=== PATIENT | female | born 1965 ===

== ENCOUNTER 2020-08-04 16:40 | Emergency (ER) | payer SELFPAY ==
[2020-08-04] MEDS ORDERED: Sodium Chloride 0.9% 10 ML Syringe FLUSH PRN (16:59)
[2020-08-04] MEDS ORDERED: Sodium Chloride 0.9% 1,000 ML IV ONE (17:03)
--- NOTE | 2020-08-04 17:11 | EDM.PDOC ---
"ED HPI GENERAL MEDICAL PROBLEM - General Chief Complaint: Neurological Problem Stated Complaint: WEAK, HARD TIME WALKING NEEDS TO BE CHECKED Time Seen by Provider: 08/04/20 17:05 Source of Information: Reports: Patient, Family (), RN, RN Notes Reviewed History Limitations: Reports: Altered Mental Status - History of Present Illness INITIAL COMMENTS - FREE TEXT/NARRATIVE: Pt presented to ER by with c/o generalized weakness, confusion, difficulty walking and speaking that began around 0900HRS this morning and has been persistent all day. Initially pt told her to let her sleep, but she slept several hours, and when he woke her she was worse and he decided to bring her to the ER. Denies any history or alcohol, drug use, sleep medication or supplements, head injury, headache, or CVA. Pt is able to state that she has no pain. She denies visual changes. Denies any significant PMHx. Onset: Today Onset Date: 08/04/20 Onset Time: 09:00 Duration: Constant Location: Reports: Generalized Severity: Severe Improves with: Reports: None Worsens with: Reports: None Associated Symptoms: Reports: No Other Symptoms - Related Data Allergies Allergy/AdvReac Type Severity Reaction Status Date / Time No Known Allergies Allergy Verified 08/04/20 16:59 Home Meds: Home Meds . [No Known Home Meds] 08/04/20 [History] Past Medical History - Past Health History Medical/Surgical History: Denies Medical/Surgical History Social & Family History - Family History Family Medical History: Unobtainable - Tobacco Use Smoking Status *Q: Never Smoker - Alcohol Use Alcohol Use History: No - Recreational Drug Use Recreational Drug Use: No - Living Situation & Occupation Living situation: Reports: , with Spouse ED ROS GENERAL - Review of Systems Review Of Systems: Comprehensive ROS is negative, except as noted in HPI. ED EXAM, NEURO - Physical Exam Exam: See Below Exam Limited By: Altered Mental Status General Appearance: Alert, No Apparent Distress Eye Exam: Bilateral Eye: EOMI, Normal Inspection, PERRL Ears: Normal External Exam, Hearing Grossly Normal Nose: Normal Inspection, Normal Mucosa, No Blood Throat/Mouth: Normal Lips, Normal Teeth, Normal Gums, Normal Oropharynx, No Airway Compromise, Other (Very dry oral membranes) Head Exam: Atraumatic, Normocephalic Neck: Normal Inspection, Supple, Non-Tender, Full Range of Motion. No: Carotid Bruit, Lymphadenopathy (L), Lymphadenopathy (R) Respiratory/Chest: No Respiratory Distress, Lungs Clear, Normal Breath Sounds, No Accessory Muscle Use, Chest Non-Tender Cardiovascular: Normal Peripheral Pulses, Regular Rate, Rhythm, No Edema, No Gallop, No JVD, No Murmur, No Rub GI/Abdominal: Normal Bowel Sounds, Soft, Non-Tender, No Organomegaly, No Distention, No Abnormal Bruit, No Mass (Female) Exam: Deferred Rectal (Female) Exam: Deferred Neurological: Alert, Normal Dorsiflexion, CN II-XII Intact, Normal Plantar Flexion, Oriented x 3 (with mild intermittent confusion), Difficulty Walking, Other (Generalized weakness. Partial aphasia, appears to be expressive and improving, follow commands, answers most but not all questions appropriately.). No: Tremor Back Exam: Normal Inspection Extremities: Normal Inspection, Normal Range of Motion, Non-Tender, No Pedal Edema, Normal Capillary Refill Psychiatric: Flat Affect Skin Exam: Warm, Dry, Intact, Normal Color, No Rash EKG INTERPRETATION EKG Date: 08/04/20 Time: 16:58 Rhythm: Other (SR) Rate (Beats/Min): 90 [place]: Normal P-Wave: Present QRS: Other (tiny inferior Q-waves) ST-T: Normal QT: Normal Comparison: NA - No Prior EKG Course - Vital Signs Last Recorded V/S: Last Vital Signs Temp 97.6 F 08/04/20 17:07 Pulse 95 08/04/20 17:07 Resp 18 08/04/20 17:07 BP 133/82 08/04/20 17:07 Pulse Ox 96 08/04/20 17:07 - Orders/Labs/Meds Orders: Active Orders 24 hr Category Date Time Status Blood Glucose Check, Bedside [RC] ONETIME Care 08/04/20 16:59 Active EKG 12 Lead [EKG Documentation Completion] [RC] STAT Care 08/04/20 16:59 Active EKG 12 Lead [EKG Documentation Completion] [RC] STAT Care 08/04/20 18:55 Ordered NIH Stroke Scale [RC] ASDIRECTED Care 08/04/20 17:15 Active Peripheral IV Care [RC] . DIRECTED Care 08/04/20 17:00 Active Chest 1V Frontal [CR] Stat Exams 08/04/20 18:53 Ordered CULTURE BLOOD [BC] Stat Lab 08/04/20 18:10 Received CULTURE BLOOD [BC] Stat Lab 08/04/20 18:15 Received D Dimer [D-DIMER QUANTITATIVE] [COAG] Stat Lab 08/04/20 18:55 Ordered DRUG SCREEN URINE BIORAD [URCHEM] Stat Lab 08/04/20 16:59 Ordered UA RFX GUALBERTO AND CULT IF INDIC [URIN] Stat Lab 08/04/20 16:59 Ordered Sodium Chloride 0.9% [Saline Flush] Med 08/04/20 16:59 Active 10 ml FLUSH ASDIRECTED PRN Blood Culture x2 Reflex Set [OM.PC] Stat Oth 08/04/20 16:59 Ordered Peripheral IV Insertion Adult [OM.PC] Stat Oth 08/04/20 16:59 Ordered Medication Orders Sodium Chloride (Saline Flush) 10 ml FLUSH ASDIRECTED PRN PRN Reason: Keep Vein Open Last Admin: 08/04/20 17:27 Dose: 10 ml Documented by: ROSEMARIE Labs: Laboratory Tests 08/04/20 08/04/20 08/04/20 Range/Units 17:06 17:06 17:06 WBC 12.9 H (5.0-10.0) 10^3/uL RBC 4.99 (4.2-5.4) 10^6/uL Hgb 15.4 (12.0-16.0) g/dL Hct 45.0 (37.0-47.0) % MCV 90.2 (80-100) fL MCH 30.9 (27.0-34.0) pg MCHC 34.2 (33.0-35.0) g/dL Plt Count 311 (150-450) 10^3/uL Neut % (Auto) 70.8 (42.2-75.2) % Lymph % (Auto) 19.9 L (20.5-50.1) % [place] % (Auto) 8.7 H (2-8) % Eos % (Auto) 0.4 L (1.0-3.0) % Baso % (Auto) 0.2 (0.0-1.0) % PT 10.1 (9.0-12.0) SEC INR 1.1 (0.9-1.2) APTT 24.0 (22.0-34.0) SEC Sodium 140 (136-145) mmol/L Potassium 4.1 (3.5-5.1) mmol/L Chloride 102 (98-107) mmol/L Carbon Dioxide 25 (21-32) mmol/L Anion Gap 17.1 H (7-13) mEq/L BUN 14 (7-18) mg/dL Creatinine 0.93 (0.55-1.02) mg/dL Est Cr Clr Drug Dosing 60.78 mL/min Estimated GFR (MDRD) > 60 BUN/Creatinine Ratio 15.1 (No establ ref range) Glucose 112 H (74-99) mg/dL Lactic Acid (0.4-2.0) mmol/L Calcium 9.6 (8.5-10.1) mg/dL Magnesium 2.0 (1.8-2.4) mg/dL Total Bilirubin 0.6 (0.2-1.0) mg/dL AST 46 H (15-37) U/L ALT 47 (14-59) U/L Alkaline Phosphatase 93 (46-116) U/L Ammonia (11-32) umol/L Troponin I 0.086 H* (0.000-0.056) ng/mL Total Protein 8.5 H (6.4-8.2) g/dL Albumin 4.3 (3.4-5.0) g/dL Globulin 4.2 Albumin/Globulin Ratio 1.0 Amylase 32 (25-115) U/L Lipase 97 (73-393) U/L TSH, Ultra Sensitive 3.15 (0.36-3.74) uIU/mL Ethyl Alcohol < 3 (0) mg/dL 08/04/20 08/04/20 Range/Units 18:10 18:10 WBC (5.0-10.0) 10^3/uL RBC (4.2-5.4) 10^6/uL Hgb (12.0-16.0) g/dL Hct (37.0-47.0) % MCV (80-100) fL MCH (27.0-34.0) pg MCHC (33.0-35.0) g/dL Plt Count (150-450) 10^3/uL Neut % (Auto) (42.2-75.2) % Lymph % (Auto) (20.5-50.1) % [place] % (Auto) (2-8) % Eos % (Auto) (1.0-3.0) % Baso % (Auto) (0.0-1.0) % PT (9.0-12.0) SEC INR (0.9-1.2) APTT (22.0-34.0) SEC Sodium (136-145) mmol/L Potassium (3.5-5.1) mmol/L Chloride (98-107) mmol/L Carbon Dioxide (21-32) mmol/L Anion Gap (7-13) mEq/L BUN (7-18) mg/dL Creatinine (0.55-1.02) mg/dL Est Cr Clr Drug Dosing mL/min Estimated GFR (MDRD) BUN/Creatinine Ratio (No establ ref range) Glucose (74-99) mg/dL Lactic Acid 1.5 (0.4-2.0) mmol/L Calcium (8.5-10.1) mg/dL Magnesium (1.8-2.4) mg/dL Total Bilirubin (0.2-1.0) mg/dL AST (15-37) U/L ALT (14-59) U/L Alkaline Phosphatase (46-116) U/L Ammonia < 10 L (11-32) umol/L Troponin I (0.000-0.056) ng/mL Total Protein (6.4-8.2) g/dL Albumin (3.4-5.0) g/dL Globulin Albumin/Globulin Ratio Amylase (25-115) U/L Lipase (73-393) U/L TSH, Ultra Sensitive (0.36-3.74) uIU/mL Ethyl Alcohol (0) mg/dL Meds: Medications Generic Name Dose Route Start Last Admin Trade Name Freq PRN Reason Stop Dose Admin Sodium Chloride 10 ml 08/04/20 16:59 08/04/20 17:27 Saline Flush FLUSH 10 ml ASDIRECTED PRN Administration Keep Vein Open Discontinued Medications Generic Name Dose Route Start Last Admin Trade Name Freq PRN Reason Stop Dose Admin Aspirin 324 mg 08/04/20 18:58 08/04/20 19:08 Aspirin PO 08/04/20 18:59 324 mg ONETIME ONE Administration Sodium Chloride 1,000 mls @ 999 mls/hr 08/04/20 17:03 08/04/20 17:27 Normal Saline IV 08/04/20 18:03 999 mls/hr .BOLUS ONE Administration - Radiology Interpretation Free Text/Narrative:: [facility] [place] [facility] Final Radiology Report Call: [phone] assistance Online chat: [email or web address] Name: SOPHIA MEDRANO Age: 55Years F Date: 08/04/2020 SSN: -- : 1965 Study: CT HEAD WO CONT Requesting Physician: LUIS FERNANDO GOYAL Images: 145 Addl Studies: Provided Clinical History: STROKE: acute aphasia, confusion, gen. weakness Contrast: Without Contrast Medium: Contrast Amount: Contrast Method: Page 1 of 2 PROCEDURE INFORMATION: Exam: CT Head Without Contrast Exam date and time: 08/04/2020 5:11 PM Age: 55 years old Clinical indication: Other: Onset 0900 this morning; Additional info: Stroke: Acute aphasia, confusion, gen. Weakness TECHNIQUE: Imaging protocol: Computed tomography of the head without contrast. Radiation optimization: All CT scans at this facility use at least one of these dose optimization techniques: automated exposure control; mA and/or kV adjustment per patient size (includes targeted exams where dose is matched to clinical indication); or iterative reconstruction. Other technique: STROKE PROTOCOL was implemented. COMPARISON: No relevant prior studies available. FINDINGS: Brain: Normal. No hemorrhage. Unremarkable white matter. No mass effect. Ventricles: Normal. No ventriculomegaly. Bones/joints: Unremarkable. No acute fracture. Sinuses: Visualized sinuses are unremarkable. No fluid levels. Mastoid air cells: Visualized mastoid air cells are well aerated. Soft tissues: Unremarkable. IMPRESSION: No acute intracranial abnormality. ASSESSMENT: ASPECTS ([place] Stroke Program Early CT Score) is 10. SOPHIA MEDRANO | Final Radiology Report CONFIDENTIALITY STATEMENT This report is intended only for use by the referring physician, and only in accordance with law. If you received this in error, call [phone]. Page 2 of 2 Thank you for allowing us to participate in the care of your patient. Dictated and Authenticated by: Rodriguez Jimenez MD 08/04/2020 5:25 PM Central Time ([place]) Departure - Departure Time of Disposition: 19:00 Disposition: DC/Tfer to Acute Hospital 02 Condition: Undetermined Clinical Impression: Elevated troponin Altered mental status, unspecified Qualifiers: Altered mental status type: somnolence Qualified Code(s): R40.0 - Somnolence - Discharge Information *PRESCRIPTION DRUG MONITORING PROGRAM REVIEWED*: No *COPY OF PRESCRIPTION DRUG MONITORING REPORT IN PATIENT KILO: No Forms: ED Department Discharge, Interfacility Transfer EMTALA Sepsis Event Note (ED) - Focused Exam Vital Signs: Vital Signs Temp Pulse Resp BP Pulse Ox 08/04/20 17:07 97.6 F 95 18 133/82 96 - My Orders Last 24 Hours: My Active Orders 08/04/20 16:59 Blood Glucose Check, Bedside [RC] ONETIME EKG 12 Lead [EKG Documentation Completion] [RC] STAT DRUG SCREEN URINE BIORAD [URCHEM] Stat UA RFX GUALBERTO AND CULT IF INDIC [URIN] Stat Sodium Chloride 0.9% [Saline Flush] 10 ml FLUSH ASDIRECTED PRN Blood Culture x2 Reflex Set [OM.PC] Stat Peripheral IV Insertion Adult [OM.PC] Stat 08/04/20 17:00 Peripheral IV Care [RC] . DIRECTED 08/04/20 17:15 NIH Stroke Scale [RC] ASDIRECTED 08/04/20 18:10 CULTURE BLOOD [BC] Stat 08/04/20 18:15 CULTURE BLOOD [BC] Stat 08/04/20 18:53 Chest 1V Frontal [CR] Stat 08/04/20 18:55 EKG 12 Lead [EKG Documentation Completion] [RC] STAT D Dimer [D-DIMER QUANTITATIVE] [COAG] Stat - Assessment/Plan Last 24 Hours: My Active Orders 08/04/20 16:59 Blood Glucose Check, Bedside [RC] ONETIME EKG 12 Lead [EKG Documentation Completion] [RC] STAT DRUG SCREEN URINE BIORAD [URCHEM] Stat UA RFX GUALBERTO AND CULT IF INDIC [URIN] Stat Sodium Chloride 0.9% [Saline Flush] 10 ml FLUSH ASDIRECTED PRN Blood Culture x2 Reflex Set [OM.PC] Stat Peripheral IV Insertion Adult [OM.PC] Stat 08/04/20 17:00 Peripheral IV Care [RC] . DIRECTED 08/04/20 17:15 NIH Stroke Scale [RC] ASDIRECTED 08/04/20 18:10 CULTURE BLOOD [BC] Stat 08/04/20 18:15 CULTURE BLOOD [BC] Stat 08/04/20 18:53 Chest 1V Frontal [CR] Stat 08/04/20 18:55 EKG 12 Lead [EKG Documentation Completion] [RC] STAT D Dimer [D-DIMER QUANTITATIVE] [COAG] Stat"
--- NOTE | 2020-08-04 17:26 | CT ---
PROCEDURE INFORMATION: Exam: CT Head Without Contrast Exam date and time: 08/04/2020 5:11 PM Age: 55 years old Clinical indication: Other: Onset 0900 this morning; Additional info: Stroke: Acute aphasia, confusion, gen. Weakness TECHNIQUE: Imaging protocol: Computed tomography of the head without contrast. Radiation optimization: All CT scans at this facility use at least one of these dose optimization techniques: automated exposure control; mA and/or kV adjustment per patient size (includes targeted exams where dose is matched to clinical indication); or iterative reconstruction. Other technique: STROKE PROTOCOL was implemented. COMPARISON: No relevant prior studies available. FINDINGS: Brain: Normal. No hemorrhage. Unremarkable white matter. No mass effect. Ventricles: Normal. No ventriculomegaly. Bones/joints: Unremarkable. No acute fracture. Sinuses: Visualized sinuses are unremarkable. No fluid levels. Mastoid air cells: Visualized mastoid air cells are well aerated. Soft tissues: Unremarkable. IMPRESSION: No acute intracranial abnormality. ASSESSMENT: ASPECTS ([place] Stroke Program Early CT Score) is 10.
[2020-08-04 18:33] LABS: ANION GAP 17.1 mEq/L (7-13); CHLORIDE,CL 102 mmol/L (98-107); SODIUM,NA 140 mmol/L (136-145)
[2020-08-04] MEDS ORDERED: Aspirin 81 MG Tab.Chew PO ONE (18:58)
--- NOTE | 2020-08-04 19:22 | CR ---
PROCEDURE INFORMATION: Exam: XR Chest, 1 View Exam date and time: 08/04/2020 7:14 PM Age: 55 years old Clinical indication: Other: Pain; Additional info: Chest pain TECHNIQUE: Imaging protocol: XR of the chest Views: 1 view. COMPARISON: No relevant prior studies available. FINDINGS: Lungs: Unremarkable. No consolidation. Pleural space: Unremarkable. No pleural effusion. No pneumothorax. Heart/Mediastinum: Unremarkable. No cardiomegaly. Bones/joints: Unremarkable. IMPRESSION: No acute findings.
== END 2020-08-04 19:37 ==
LOC: DL.ED 16:40
DX: R40.0 Somnolence (principal); R79.89 Other specified abnormal findings of blood chemistry
CPT/HCPCS: 36415; 70450; 71045; 80053; 80307; 82140; 82150; 82962; 83605; 83690; 83735; 84443; 84484; 85025; 85379; 85610; 85730; 87040; 93005; 96360; 99285-25; A9270-GY; J7030